=== PATIENT | female | born 1980 | race Caucasian/White ===

== ENCOUNTER → 2016-11-24 | Outpatient (CLI) | payer OTHER ==
[2016-11-24 15:11] LABS: Basophils # (A) 0.1 k/uL (0-0.2); Basophils % (A) 1 %; CH 29.8; CHCM 32.6; Eosinophils # (A) 0.1 k/uL (0-0.7); Eosinophils % (A) 2 %; HCT 39.5 % (34.0-46.0); HDW 2.08; HGB 12.7 gm/dL (11.4-16.0); Luc # (Auto) 0.16; Luc % (Auto) 3; Lymphocytes # (A) 1.7 k/uL (1.0-4.8); Lymphocytes % (A) 30 %; MCH 29.5 pg (25.0-35.0); MCHC 32.1 g/dL (31.0-37.0); MCV 91.8 fL (80.0-100.0); Mean Platelet Volume 8.4; Monocytes # (A) 0.5 k/uL (0-1.0); Monocytes % (A) 9 %; Neutrophils # (A) 3.2 k/uL (1.3-7.7); Neutrophils % (A) 56 %; RDW 14.1 % (11.5-15.5); WBC 5.7 k/uL (3.8-10.6)
[2016-11-24 15:20] LABS: ALT 251 U/L (9-52); AST 221 U/L (14-36); Alkaline Phosphatase 124 U/L (38-126); Anion Gap 11 mmol/L; Blood Urea Nitrogen 12 mg/dL (7-17); Calcium 9.7 mg/dL (8.4-10.2); Carbon Dioxide 26 mmol/L (22-30); Chloride 103 mmol/L (98-107); Glucose 83 mg/dL (74-99); Non-African American GFR(MDRD) >60 (>60 ml/min/1.73 sqM); Potassium 4.4 mmol/L (3.5-5.1); Sodium 140 mmol/L (137-145); Total Bilirubin 0.8 mg/dL (0.2-1.3); Total Protein 7.6 g/dL (6.3-8.2)
== END | disposition home or self-care (01) ==
LOC: LABWHC1 14:08
PROVIDERS: ATTEND Family Medicine
DX: F19.10 Other psychoactive substance abuse, uncomplicated (principal)
CPT/HCPCS: 36415; 80053; 85025; 86780; 87340

== ENCOUNTER 2018-05-29 23:58 | Emergency (ER) | payer OTHER ==
--- NOTE | 2018-05-30 01:54 | ED ---
General Adult HPI - General Source: patient, EMS, RN notes reviewed Mode of arrival: EMS Limitations: no limitations <Andre Quintanilla P - Last Filed: 05/30/18 01:50> <Elizabeth Gibbs P - Last Filed: 05/30/18 21:26> - General Chief complaint: Overdose Stated complaint: Overdose - History of Present Illness Initial comments: 38-year-old female with a past medical history of scoliosis, IV drug abuse presents to the emergency department for heroin overdose. Patient was brought in by [facility]. Patient was given 1 mg of Narcan on scene. Patient is alert and oriented in the emergency department. Answering questions without difficulty. Patient does not remember exactly what happened. States she was alone when this overdose occurred.Patient has no other complaints at this time including shortness of breath, chest pain, abdominal pain, nausea or vomiting, headache, or visual changes. (Andre Quintanilla) - Related Data Previous Rx's Medication Instructions Recorded Hydrocodone/Acetaminophen [[place] 1 each PO Q6HR PRN #20 tab 12/19/15 5-325] Allergies Allergy/AdvReac Type Severity Reaction Status Date / Time No Known Allergies Allergy Verified 12/19/15 12:31 Review of Systems ROS Other: All systems not noted in ROS Statement are negative. <Andre Quintanilla P - Last Filed: 05/30/18 01:50> ROS Other: All systems not noted in ROS Statement are negative. <Elizabeth Gibbs P - Last Filed: 05/30/18 21:26> ROS Statement: Those systems with pertinent positive or pertinent negative responses have been documented in the HPI. Past Medical History Past Medical History: No Reported History Additional Past Medical History / Comment(s): scolosis, degenerative disc disease History of Any Multi-Drug Resistant Organisms: MRSA Date of last positivie culture/infection: 2006 MDRO Source:: lower abdomin Past Surgical History: Tubal Ligation Additional Past Surgical History / Comment(s): abdominal surgery for MRSA Past Psychological History: Anxiety Smoking Status: Current some day smoker Past Alcohol Use History: Occasional Past Drug Use History: Heroin, Marijuana <Andre Quintanilla P - Last Filed: 05/30/18 01:50> General Exam Limitations: no limitations General appearance: alert, in no apparent distress Head exam: Present: atraumatic, normocephalic, normal inspection Eye exam: Present: normal appearance, PERRL, EOMI. Absent: scleral icterus, conjunctival injection, periorbital swelling ENT exam: Present: normal exam, mucous membranes moist Neck exam: Present: normal inspection, full ROM. Absent: tenderness, meningismus, lymphadenopathy Respiratory exam: Present: normal lung sounds bilaterally. Absent: respiratory distress, wheezes, rales, rhonchi, stridor Cardiovascular Exam: Present: regular rate, normal rhythm, normal heart sounds. Absent: systolic murmur, diastolic murmur, rubs, gallop, clicks GI/Abdominal exam: Present: soft, normal bowel sounds. 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 ] Respiratory 14 Rate Blood Pressure 118/98 101/67 O2 Sat by Pulse 100 99 99 Oximetry 05/30/18 05/30/18 05/30/18 00:40 01:00 01:12 Temperature Pulse Rate 101 H 97 Pulse Rate [ Timber Incisor Operator ] Respiratory 17 Rate Blood Pressure 103/71 O2 Sat by Pulse 95 98 Oximetry 05/30/18 01:40 Temperature 98.1 F Pulse Rate 78 Pulse Rate [ Timber Incisor Operator ] Respiratory 18 Rate Blood Pressure 116/68 O2 Sat by Pulse 96 Oximetry Medical Decision Making <Andre Quintanilla P - Last Filed: 05/30/18 01:50> <Elizabeth Gibbs P - Last Filed: 05/30/18 21:26> - Medical Decision Making 38-year-old female presents to the emergency department for a chief complaint of heroin overdose. Patient was given 1 mg of Narcan prior to arrival. Patient is alert and oriented in the emergency department. Well appearing. Vitals are stable although minimally tachycardic. Patient has family member at bedside. Patient was monitored for 2 hours here in the emergency department. She is well-appearing and discharge. Discharge vitals are stable. Patient will follow up with primary care, return here if she has any worsening symptoms. (Andre Quintanilla) I was available for consultation in the emergency department. The history and physical exam were done by the midlevel provider. I was consulted for this patient's care. I reviewed the case with the midlevel provider and based on their presentation of the patient, I agree with the assessment, medical decision making and plan of care as documented. (Elizabeth Gibbs) Disposition Is patient prescribed a controlled substance at d/c from ED?: No Time of Disposition: 01:53 <Andre Quintanilla P - Last Filed: 05/30/18 01:50> Is patient prescribed a controlled substance at d/c from ED?: No <Elizabeth Gibbs - Last Filed: 05/30/18 21:26> Clinical Impression: Heroin overdose Disposition: HOME SELF-CARE Condition: Good Instructions (If sedation given, give patient instructions): Adult Overdose (ED), Opioid Use Disorder (ED) Additional Instructions: Please follow up with primary care in 1-2 days. Please return here to the emergency department if you have any worsening symptoms. Referrals: Janel Dawkins MD [Primary Care Provider] - 1-2 days
[2018-05-30 01:59] VITALS: BP 116/68; RESP 18; TEMP 98.1
[2018-05-30 02:05] VITALS: PULSE 110
== END 2018-05-30 02:03 | disposition home or self-care (01) ==
LOC: EC 23:58
DX: T40.1X1A Poisoning by heroin, accidental (unintentional), initial encounter (principal); R00.0 Tachycardia, unspecified; F17.200 Nicotine dependence, unspecified, uncomplicated; Z86.14 Personal history of Methicillin resistant Staphylococcus aureus infection
CPT/HCPCS: 99284

== ENCOUNTER 2019-10-14 01:07 | Emergency (ER) | payer OTHER ==
[2019-10-14 01:13] VITALS: BP 113/71; PULSE 100; RESP 20; TEMP 98.2
[2019-10-14] MEDS ORDERED: IBUPROFEN 600 MG STARTER PACK 4 TAB BTL PO STA (01:23)
[2019-10-14] MEDS ORDERED: LIDOCAINE 1% INJ 10MG/ML (20 ML MDV) SQ ONE (01:23)
[2019-10-14] MEDS ORDERED: SULFAMETH-TMP DS STARTER PACK 2 TAB BTL PO STA (01:23)
[2019-10-14] MEDS ORDERED: ACET/COD 300 MG/30 MG STARTER PACK 6 TAB BTL PO STA (01:23)
--- NOTE | 2019-10-14 02:09 | ED ---
Skin/Abscess/FB HPI - General Chief complaint: Skin/Abscess/Foreign Body Stated complaint: Abscess right arm Time Seen by Provider: 10/14/19 01:15 Source: patient Mode of arrival: ambulatory Limitations: no limitations - History of Present Illness Initial comments: 39-year-old female patient presents the emergency department today for evaluation of swelling, pain, redness to the right forearm. Patient states that the area started 2 days ago with swelling and redness. States today the swelling and pain worsen significantly. States the area is hot to touch. She does admit to injecting heroin but states that her sites are usually more distal than this. She denies any fever or chills. Denies nausea or vomiting. Denies history of abscess or MRSA. Patient denies any recent rash, cough, shortness of breath, chest pain, abdominal pain, diarrhea, constipation, back pain, numbness, tingling, dizziness, weakness, hematuria, dysuria, urinary urgency, urinary frequency, headache, visual changes, or any other complaints. - Related Data Previous Rx's Medication Instructions Recorded Hydrocodone/Acetaminophen [[place] 1 each PO Q6HR PRN #20 tab 12/19/15 5-325] Sulfamethoxazole/Trimethoprim 1 each PO BID #20 tablet 10/14/19 [Bactrim DS 800-160 mg] Allergies Allergy/AdvReac Type Severity Reaction Status Date / Time No Known Allergies Allergy Verified 10/14/19 01:13 Review of Systems ROS Statement: Those systems with pertinent positive or pertinent negative responses have been documented in the HPI. ROS Other: All systems not noted in ROS Statement are negative. Past Medical History Past Medical History: No Reported History Additional Past Medical History / Comment(s): scolosis, degenerative disc disease History of Any Multi-Drug Resistant Organisms: MRSA Date of last positivie culture/infection: 2006 MDRO Source:: lower abdomin Past Surgical History: Tubal Ligation Additional Past Surgical History / Comment(s): abdominal surgery for MRSA Past Psychological History: Anxiety Smoking Status: Never smoker Past Alcohol Use History: Occasional Past Drug Use History: Heroin, Marijuana General Exam Limitations: no limitations General appearance: alert, in no apparent distress, other (This is a well- developed, well-nourished adult female patient in no acute distress. Vital signs upon presentation are temperature 98.2F, pulse 100, respirations 20, blood pressure 113/71, pulse ox 100% on room air.) Respiratory exam: Present: normal lung sounds bilaterally. Absent: respiratory distress, wheezes, rales, rhonchi, stridor Cardiovascular Exam: Present: regular rate, normal rhythm, normal heart sounds. Absent: systolic murmur, diastolic murmur, rubs, gallop, clicks Extremities exam: Present: full ROM, normal capillary refill, other (There is abscess noted to the right volar forearm. Abscess is approximately 3 cm x 3 cm with surrounding erythema. Central area of fluctuance is noted. There is no streaking. No axillary lymph nodes palpable. Skin is otherwise pink, warm, dry. Cap refills less than 3 seconds. Radial pulses 2+ and equal bilaterally.). Absent: normal inspection, tenderness, pedal edema, joint swelling, calf tenderness Neurological exam: Present: alert, oriented X3, CN II-XII intact Psychiatric exam: Present: normal affect, normal mood Skin exam: Present: warm, dry, intact, normal color. 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: Identity, Site, Procedure, Consent Site: right forearm Site Marked: Yes Site Verified With Patient/Guardian: Yes Final Confirmation: Procedure, Site, Laterality - Incision & Drainage Consent Obtained: verbal consent Indication: Abscess Site: upper extremity (Right forearm) Size (cm): 3 Anesthetic Used: lidocaine 1% Amount (mLs): 7 I&D Cleaning Method: Betadine Scalpel Used: #11 I&D Drainage Obtained: Pus, Blood Culture Obtained?: Yes Patient Tolerated Procedure: well, no complications Medical Decision Making - Medical Decision Making 39-year-old female patient presented to the emergency department today for evaluation of abscess to the right forearm. Physical examination did reveal a 3 cm x 3 cm abscess with central area of fluctuance and surrounding erythema. Incision and drainage was performed. There was output of a large amount of purulent fluid. Culture was obtained. She was started on Bactrim. She will be discharged with instructions to apply warm compresses 4-5 times per day. She is instructed to follow-up the primary care physician for recheck in 1-2 days. Return parameters were discussed in detail. She verbalizes understanding and agrees with this plan. Disposition Clinical Impression: Abscess of right forearm Disposition: HOME SELF-CARE Condition: Good Instructions (If sedation given, give patient instructions): Abscess Incision and Drainage (ED), Abscess (ED) Additional Instructions: Apply warm compresses to the area at least 4-5 times per day. Complete antibiotic prescription and full. Follow-up with the primary care physician for recheck in 1-2 days. Return to the emergency department immediately for any new, worsening, or concerning symptoms. Prescriptions: Sulfamethoxazole/Trimethoprim [Bactrim DS 800-160 mg] 1 each PO BID #20 tablet Is patient prescribed a controlled substance at d/c from ED?: No Referrals: Janel Dawkins MD [Primary Care Provider] - 1-2 days Time of Disposition: 02:08
== END 2019-10-14 02:15 | disposition home or self-care (01) ==
LOC: EC 01:07
DX: L02.413 Cutaneous abscess of right upper limb (principal); Z86.14 Personal history of Methicillin resistant Staphylococcus aureus infection
CPT/HCPCS: 87070; 87205; 99283; 10060; J2001

== ENCOUNTER 2020-01-30 20:32 | Emergency (ER) | payer OTHER ==
[2020-01-30 20:37] VITALS: BP 113/53; PULSE 98; RESP 16; TEMP 98.3
[2020-01-30] MEDS ORDERED: SODIUM CHLORIDE 0.9% 500 ML 500 ML IV STA (20:52)
[2020-01-30] MEDS ORDERED: PIPERACILLIN-TAZOBACTAM 3.375 GM in SODIUM CHLORIDE 0.9% 100 ML IVPB STA (20:53)
--- NOTE | 2020-01-30 21:10 | ED ---
General Adult HPI - General Chief complaint: Wound/Laceration Stated complaint: Wound Time Seen by Provider: 01/30/20 20:43 Source: patient, RN notes reviewed, old records reviewed Mode of arrival: ambulatory Limitations: no limitations - History of Present Illness Initial comments: 39-year-old female patient to ED for evaluation of wound dehiscence on the anterior abdomen. Patient had not expiratory laparotomy 2 months ago for perforated peptic ulcer. Today she had some wound dehiscence at the proximal aspect of the incision. Patient has a small amount of protruding tissue. She denies any pain or any other complaints. Denies any fevers. Systemic: Pt denies fatigue, fever/chills, rash. Pt denies weakness, night sweats, weight loss. Neuro: Pt denies headache, visual disturbances, syncope or pre-syncope. HEENT: Pt denies ocular discharge or irritation, otalgia, rhinorrhea, pharyngitis or notable lymphadenopathy. Cardiopulmonary: Pt denies chest pain, SOB, heart palpitations, dyspnea on exertion. Abdominal/GI: Pt denies abdominal pain, n/v/d. : Pt denies dysuria, burning w/ urination, frequency/urgency. Denies new onset urinary or bowel incontinence. MSK: Pt denies myalgia, loss of strength or function in extremities. Neuro: Pt denies new onset weakness, paresthesias. - Related Data Previous Rx's Medication Instructions Recorded Hydrocodone/Acetaminophen [[place] 1 each PO Q6HR PRN #20 tab 12/19/15 5-325] Sulfamethoxazole/Trimethoprim 1 each PO BID #20 tablet 10/14/19 [Bactrim DS 800-160 mg] Allergies Allergy/AdvReac Type Severity Reaction Status Date / Time No Known Allergies Allergy Verified 01/30/20 20:37 Review of Systems ROS Statement: Those systems with pertinent positive or pertinent negative responses have been documented in the HPI. ROS Other: All systems not noted in ROS Statement are negative. Past Medical History Past Medical History: No Reported History Additional Past Medical History / Comment(s): scolosis, degenerative disc disease History of Any Multi-Drug Resistant Organisms: MRSA Date of last positivie culture/infection: 2006 MDRO Source:: lower abdomin Past Surgical History: Tubal Ligation Additional Past Surgical History / Comment(s): abdominal surgery for MRSA Past Psychological History: Anxiety Smoking Status: Never smoker Past Alcohol Use History: Occasional Past Drug Use History: Heroin, Marijuana General Exam - General Exam Comments Initial Comments: Constitutional: NAD, AOX3, Pt has pleasant affect. HEENT: NC/AT, trachea midline, neck supple, no lymphadenopathy. External ears appear normal, without discharge. Mucous membranes moist. Eyes PERRLA, EOM intact. There is no scleral icterus. No pallor noted. Cardiopulmonary: RRR, no murmurs, rubs or gallops, no JVD noted. Lungs CTAB in anterior and posterior locke. No peripheral edema. Abdominal exam: Abdomen soft and non-distended. Abdomen non-tender to palpation in all 4 quadrants. Small amount of wound dehiscence on proximal aspect of incision anterior abdomen. Small amount of protruding tissue. No inflammatory changes or signs of infection. Neuro: CN II-XII grossly intact. MSK: Full active ROM in upper and lower extremities, 5/5 stregnth. Limitations: no limitations Course Vital Signs 01/30/20 20:34 Temperature 98.3 F Pulse Rate 98 Respiratory 16 Rate Blood Pressure 113/53 O2 Sat by Pulse 98 Oximetry Medical Decision Making - Medical Decision Making 39-year-old female patient ED for evaluation of wound dehiscence on her anterior abdomen. Vital signs are stable, afebrile. Physical exam displayed small amount wound dehiscence with protruding tissue. I discussed case with patient's surgeon Dr. Howard and sent him a picture with the patients permission. He believes this is granulation tissue and the patient can be seen in the office tomorrow at 1 PM with a dressing, no antibiotics. Patient will be discharged with outpatient follow up and return precautions. Case discussed with Dr. Ocampo. Disposition Clinical Impression: Wound dehiscence Disposition: HOME SELF-CARE Condition: Stable Instructions (If sedation given, give patient instructions): Wound Dehiscence (ED) Additional Instructions: Keep dressing on wound. Follow up with Dr. Howard tomorrow at 1pm in his office. Return to ED with any worsening symptoms. Follow up with PCP in 1-2 days. Is patient prescribed a controlled substance at d/c from ED?: No Referrals: Janel Dawkins MD [Primary Care Provider] - 1-2 days Titus Galan MD [STAFF PHYSICIAN] - 1-2 days
== END 2020-01-30 21:27 | disposition home or self-care (01) ==
LOC: EC 20:32
DX: T81.30XA Disruption of wound, unspecified, initial encounter (principal); Z98.51 Tubal ligation status; Z86.14 Personal history of Methicillin resistant Staphylococcus aureus infection
CPT/HCPCS: 99283

== ENCOUNTER 2020-06-01 08:43 | Emergency (ER) | payer OTHER ==
[2020-06-01 09:03] VITALS: RESP 18
[2020-06-01] MEDS ORDERED: LORazepam 1 MG TAB PO STA (11:55)
--- NOTE | 2020-06-01 12:03 | ED ---
Psych HPI - General Chief Complaint: Psychiatric Symptoms Stated Complaint: mental health Time Seen by Provider: 06/01/20 09:07 Source: patient Mode of arrival: ambulatory - History of Present Illness Initial Comments: 40-year-old female patient presents to the emergency department today for evaluation of hallucinations. Patient states 2 days ago she started hearing voices. States she hears the voices of her family members going through scenarios in about her family members being involved in drug raids and being in danger. She denies any directives to harm herself or others. She denies history of mental illness. Does not use any medications. She has been incarcerated since Thursday. She denies any head injury. Patient denies any recent rash, fever, chills, cough, shortness of breath, chest pain, abdominal pain, nausea, vomiting, diarrhea, constipation, back pain, numbness, tingling, dizziness, weakness, hematuria, dysuria, urinary urgency, urinary frequency, or any other complaints. - Related Data Home Medications Medication Instructions Recorded Confirmed Acetaminophen Tab [Tylenol] 650 mg PO TID PRN 06/01/20 06/01/20 Dicyclomine [Bentyl] 20 mg PO TID PRN 06/01/20 06/01/20 Promethazine [Phenergan] 25 mg PO TID PRN 06/01/20 06/01/20 cloNIDine HCL [Catapres] 0.1 mg PO TID PRN 06/01/20 06/01/20 hydrOXYzine pamoate [hydrOXYzine 50 mg PO TID PRN 06/01/20 06/01/20 PAMOATE] Allergies Allergy/AdvReac Type Severity Reaction Status Date / Time No Known Allergies Allergy Verified 06/01/20 10:02 Review of Systems ROS Statement: Those systems with pertinent positive or pertinent negative responses have been documented in the HPI. ROS Other: All systems not noted in ROS Statement are negative. Past Medical History Past Medical History: No Reported History Additional Past Medical History / Comment(s): scolosis, degenerative disc disease History of Any Multi-Drug Resistant Organisms: MRSA Date of last positivie culture/infection: 2006 MDRO Source:: lower abdomin Past Surgical History: Bowel Resection, Tubal Ligation Additional Past Surgical History / Comment(s): abdominal surgery for MRSA, Past Psychological History: Anxiety Smoking Status: Never smoker Past Alcohol Use History: Occasional Past Drug Use History: Heroin, Marijuana General Exam Limitations: no limitations, altered mental status General appearance: alert, in no apparent distress, other (This is a well- developed, well-nourished adult female patient in no acute distress. Vital s igns upon presentation temperature 98.3F, pulse 80, respirations 18, blood pressure 94/63, pulse ox 100% on room air.) Eye exam: Present: normal appearance, PERRL, EOMI. Absent: scleral icterus, conjunctival injection, periorbital swelling ENT exam: Present: normal exam, normal oropharynx, mucous membranes moist Respiratory exam: Present: normal lung sounds bilaterally. Absent: respiratory distress, wheezes, rales, rhonchi, stridor Cardiovascular Exam: Present: regular rate, normal rhythm, normal heart sounds. Absent: systolic murmur, diastolic murmur, rubs, gallop, clicks GI/Abdominal exam: Present: soft, normal bowel sounds. Absent: distended, tenderness, guarding, rebound, rigid Neurological exam: Present: alert, oriented X3, CN II-XII intact Psychiatric exam: Present: normal affect, normal mood, anxious. Absent: homicidal ideation, suicidal ideation Skin exam: Present: warm, dry, intact, normal color. Absent: rash Course Vital Signs 06/01/20 09:00 Temperature 98.3 F Pulse Rate 80 Respiratory 18 Rate Blood Pressure 94/63 O2 Sat by Pulse 100 Oximetry Medical Decision Making - Medical Decision Making 40-year-old female patient presents to the emergency department today for hallucinations starting 2 days ago. Patient has no history of similar symptoms. She was cleared medically. Seen by emergency psychiatric services. She will be given Ativan and discharge back to [facility]. She is instructed to follow-up with primary care physician for recheck in 1-2 days. She is instructed to follow-up with outpatient mental services when possible. Return parameters were discussed in detail. She verbalizes understanding and agrees this plan. My attending is Dr. Ocampo. Disposition Clinical Impression: Hallucinations, Anxiety Disposition: HOME SELF-CARE Condition: Good Instructions (If sedation given, give patient instructions): Anxiety (ED), Hallucinations (ED) Additional Instructions: Follow-up with outpatient mental services. Return to the emergency department for any new, worsening, or concerning symptoms. Is patient prescribed a controlled substance at d/c from ED?: No Referrals: Janel Dawkins MD [Primary Care Provider] - 1-2 days Time of Disposition: 12:10
[2020-06-01 12:37] VITALS: BP 98/63; PULSE 72; TEMP 98.7
== END 2020-06-01 12:37 | disposition home or self-care (01) ==
LOC: EC 08:43
DX: R44.3 Hallucinations, unspecified (principal); F41.9 Anxiety disorder, unspecified; Z79.899 Other long term (current) drug therapy; F12.90 Cannabis use, unspecified, uncomplicated; F19.90 Other psychoactive substance use, unspecified, uncomplicated
CPT/HCPCS: 82075; 99285

== ENCOUNTER 2020-09-20 02:04 | Emergency (ER) | payer OTHER ==
[2020-09-20 02:34] VITALS: BP 108/64; PULSE 105; RESP 20; TEMP 98.4
[2020-09-20 03:28] LABS: Basophils % (A) 1 %; Eosinophils # (A) 0.2 k/uL (0-0.7); Eosinophils % (A) 3 %; HCT 36.9 % (34.0-46.0); HGB 12.3 gm/dL (11.4-16.0); Lymphocytes # (A) 2.8 k/uL (1.0-4.8); Lymphocytes % (A) 37 %; MCHC 33.4 g/dL (31.0-37.0); MCV 89.8 fL (80.0-100.0); Mean Platelet Volume 9.1; Monocytes # (A) 0.5 k/uL (0-1.0); Monocytes % (A) 7 %; Neutrophils # (A) 3.7 k/uL (1.3-7.7); Neutrophils % (A) 49 %; Platelet Count 249 k/uL (150-450); RBC 4.11 m/uL (3.80-5.40); RDW 14.7 % (11.5-15.5); WBC 7.6 k/uL (3.8-10.6)
[2020-09-20 03:42] LABS: ALT 122 U/L (4-34); AST 130 U/L (14-36); African American GFR (CKD) >90 (>60 ml/min/1.73 sqM); Albumin 3.5 g/dL (3.5-5.0); Alkaline Phosphatase 115 U/L (38-126); Amylase 51 U/L (30-110); Anion Gap 4 mmol/L; Blood Urea Nitrogen 26 mg/dL (7-17); Calcium 8.9 mg/dL (8.4-10.2); Carbon Dioxide 28 mmol/L (22-30); Chloride 102 mmol/L (98-107); Glucose 119 mg/dL (74-99); Lipase 39 U/L (23-300); Non-African American GFR(CKD) >90 (>60 ml/min/1.73 sqM); Sodium 134 mmol/L (137-145); Total Bilirubin 0.5 mg/dL (0.2-1.3)
[2020-09-20 03:45] LABS: Appearance,Urine Clear (Clear); Bilirubin,Urine Negative (Negative); Blood,Urine Small (Negative); Color,Urine Yellow; Glucose,Urine (UA) Negative (Negative); Ketones,Urine Negative (Negative); Leukocyte Esterase,Urine Negative (Negative); Mucus,Urine Rare /hpf; Nitrite,Urine Negative (Negative); Protein,Urine Negative (Negative); RBC,Urine 24 /hpf (0-5); Specific Gravity,Urine 1.024 (1.001-1.035); Urobilinogen,Urine <2.0 mg/dL (<2.0); WBC,Urine 1 /hpf (0-5)
[2020-09-20 03:48] LABS: Potassium 4.8 mmol/L (3.5-5.1)
== END 2020-09-20 04:03 ==
LOC: EC 02:04
DX: Z53.21 Procedure and treatment not carried out due to patient leaving prior to being seen by health care provider (principal)
CPT/HCPCS: 36415; 80053; 81001; 81025; 82150; 83690; 85025; 99499